=== PATIENT | male | born 1980 | race Caucasian/White ===

== ENCOUNTER 2019-04-16 17:43 | Emergency (ER) | payer SELFPAY ==
[~2019-04-16] VITALS: Ht 180.3 cm; Wt 95.3 kg
[2019-04-16 18:03] VITALS: BP 151/81
--- NOTE | 2019-04-16 18:54 | NUR ---
PT AMBULATED TO BED 10.
--- NOTE | 2019-04-16 19:10 | NUR ---
BIB SELF C/O ACUTE ON CHRONIC LOWER BACK PAIN WITHOUT INJURY. PATIENT REPORTS TO WAKING UP YESTERDAY MORNING WITH 10/10 LOWER BACK PAIN. ROM UPPER/LOWER EXTREMITIES. NO CHANGES IN BOWEL OR BLADDER FUNCTION. CIRCULATION IN LOWER EXTREMITIES IN TACT. SENSATION IN LOWER EXTREMITIES IN TACT. SKIN IN TACT. DENIES ANY CP/SOB. AAOX3. HX: HTN, SCOLIOSIS. NKA
--- NOTE | 2019-04-16 19:14 | NUR ---
RECEIVED REPORT FROM RONNA ELLSWORTH. Addendum: 04/16/19 at 1919 by [facility] TRANSFER OF CARE AT THIS TIME.
--- NOTE | 2019-04-16 19:15 | NUR ---
DR. UNRULY STEINBERG AT BEDSIDE.
--- NOTE | 2019-04-16 19:15 | NUR ---
SBAR REPORT GIVEN TO LIZZ FRIEND.
[2019-04-16] MEDS ORDERED: KETOROLAC 30 MG/ML VIAL IM ONE (19:20)
[2019-04-16] MEDS ORDERED: DIAZEPAM 5 MG TAB PO ONE (19:20)
--- NOTE | 2019-04-16 19:50 | NUR ---
MEDICATED WITH 30 MG IM TORADOL FOR 01/08 LOWER BACK PAIN. DID NOT ADMINISTER 5 MG PO DIAZEPAM; DROPPED MEDICATION ON FLOOR. WILL TAKE OUT ANOTHER DOSE. Addendum: 04/16/19 at 2014 by [facility] WILL MEDICATE WHEN PT RETURNS FROM XRAY.
--- NOTE | 2019-04-16 19:51 | NUR ---
TAKEN TO XRAY VIA WC.
--- NOTE | 2019-04-16 20:11 | NUR ---
PT RETURNED FROM XRAY VIA WC. MEDICATED WITH 5 MG PO DIAZEPAM FOR 10/10 LOWER BACK PAIN. WILL REASSESS.
--- NOTE | 2019-04-16 21:00 | NUR ---
PT LAYING IN BED WITH EYES CLOSED, DEEP RESPIRATIONS NOTED. AROUSABLE TO LIGHT SHAKING, VERBAL STIMULI. PT REPORTS MINIMAL CHANGE IN PAIN; 11/08. DR. TOLLIVER MADE AWARE.
[2019-04-16 21:33] VITALS: BP 148/85
--- NOTE | 2019-04-16 21:33 | NUR ---
Patient discharged with v/s stable. Written and verbal after care instructions given and explained. Patient alert, oriented and verbalized understanding of instructions. Ambulatory with steady gait. All questions addressed prior to discharge. ID band removed. Patient advised to follow up with PMD. Rx of Naprosyn, Valium, and Lidoderm patch given. Patient educated on indication of medication including possible reaction and side effects. Opportunity to ask questions provided and answered.
== END 2019-04-16 21:33 | disposition home or self-care (01) ==
LOC: MED 17:43
DX: S39.012A Strain of muscle, fascia and tendon of lower back, initial encounter (principal); X50.0XXA Overexertion from strenuous movement or load, initial encounter; Y93.89 Activity, other specified; Y92.89 Other specified places as the place of occurrence of the external cause; Y99.8 Other external cause status; I10 Essential (primary) hypertension
CPT/HCPCS: 72100; 96372; 99283; J1885; Q0092